=== PATIENT | female | born 1985 | race Caucasian/White ===

== ENCOUNTER 2016-09-05 10:09 | Emergency (ER) | payer OTHER ==
--- NOTE | 2016-09-05 10:52 | ED ---
General Adult HPI - General Chief complaint: Recheck/Abnormal Lab/Rx Stated complaint: abd pain 15 weeks preg Time Seen by Provider: 09/05/16 10:39 Source: patient, RN notes reviewed Mode of arrival: ambulatory Limitations: no limitations - History of Present Illness Initial comments: 31-year-old female presents emergency Department with chief complaint of wanting an ultrasound. Patient states that she has 14 weeks and a few days . Patient states that she has no abdominal complaints she denies pain, vaginal bleeding, vaginal discharge, dysuria, hematuria. She states she is scheduled see Dr. Edwards yesterday though she states that she was told that she cannot be seen because she has high risk because she had twins a urine a half ago. Patient states she is scheduled to see an J[facility]CRIPT DEVELOPER in [place] next month. Patient states that she just wants to have an ultrasound to check everything. Patient is A1 - Related Data Home Medications Medication Instructions Recorded Confirmed ALPRAZolam [Xanax] 0.5 mg PO Q8HR 02/04/16 02/04/16 Citalopram Hydrobromide [CeleXA] 40 mg PO DAILY 02/04/16 02/04/16 HYDROcodone/APAP 10-325MG [[place] 1 tab PO Q6H PRN 02/04/16 02/04/16 10-325] Previous Rx's Medication Instructions Recorded Acetaminophen-Codeine 300-30mg 1 tab PO Q4H PRN #10 tablet 02/04/16 [Tylenol #3] Npd-Gqbu-Kwyss Acid 1 each PO DAILY #30 cap 09/05/16 [-U Capsule] Allergies Allergy/AdvReac Type Severity Reaction Status Date / Time ibuprofen [From Motrin] Allergy Rash/Hives Verified 09/05/16 10:19 Review of Systems ROS Statement: Those systems with pertinent positive or pertinent negative responses have been documented in the HPI. ROS Other: All systems not noted in ROS Statement are negative. Past Medical History Past Medical History: No Reported History Additional Past Medical History / Comment(s): heart murmur History of Any Multi-Drug Resistant Organisms: None Reported Additional Past Surgical History / Comment(s): wisdom teeth Past Anesthesia/Blood Transfusion Reactions: No Reported Reaction Past Psychological History: No Psychological Hx Reported Smoking Status: Current every day smoker Past Alcohol Use History: None Reported Past Drug Use History: None Reported - Past Family History Mother Family Medical History: No Reported History General Exam Limitations: no limitations General appearance: alert, in no apparent distress Head exam: Present: atraumatic, normocephalic, normal inspection Respiratory exam: Present: normal lung sounds bilaterally. Absent: respiratory distress, wheezes, rales, rhonchi, stridor Cardiovascular Exam: Present: regular rate, normal rhythm, normal heart sounds. Absent: systolic murmur, diastolic murmur, rubs, gallop, clicks GI/Abdominal exam: Present: soft, normal bowel sounds. Absent: distended, tenderness, guarding, rebound, rigid Course Vital Signs 09/05/16 10:14 Temperature 97.6 F Pulse Rate 87 Respiratory 18 Rate Blood Pressure 116/70 O2 Sat by Pulse 98 Oximetry Medical Decision Making - Medical Decision Making 31-year-old female presented for with no complaints. Patient was requesting ultrasound. heart tones were performed by tn heart rate of 152. Patient's has no abdominal pain no vaginal bleeding or cramping. Patient has follow-up plan with [facility]. Patient was started on vitamin. Patient declined blood work. Disposition Clinical Impression: Disposition: HOME SELF-CARE Condition: Stable Instructions: (ED) Additional Instructions: Please return to the Emergency Department if symptoms worsen or any other concerns. Prescriptions: Vza-Qwiq-Vfkjp Acid [-U Capsule] 1 each PO DAILY #30 cap Time of Disposition: 11:43
[2016-09-05 11:50] VITALS: BP 127/70; PULSE 74; RESP 16; TEMP 97.8
== END 2016-09-05 11:49 | disposition home or self-care (01) ==
LOC: EC 10:09
DX: Z36 Encounter for antenatal screening of mother (principal); O99.332 Smoking (tobacco) complicating pregnancy, second trimester; F17.200 Nicotine dependence, unspecified, uncomplicated; Z3A.14 14 weeks gestation of pregnancy; Z88.8 Allergy status to other drugs, medicaments and biological substances; Z79.899 Other long term (current) drug therapy
CPT/HCPCS: 99283

== ENCOUNTER → 2016-12-11 | Outpatient (CLI) | payer OTHER ==
--- NOTE | 2016-12-12 07:48 | US ---
EXAMINATION TYPE: US OB anatomy transabd DATE OF EXAM: 12/11/2016 4:44 PM COMPARISON: NONE HISTORY: Z34.80 ENCOUNTER OF SUPERVISION OF NORMAL ; Anatomy survey per order; (twins); smoker TECHNIQUE: Transabdominal (TA) EXAM MEASUREMENTS: GESTATIONAL AGE / DATING Physician Established: (32 weeks/5 days) EDC: 01/31/2017 Dates by LMP: (32 weeks/5 days) EDC: 01/31/2017 Dates by First Scan: not here per patient Dates by Current Scan for: (32 weeks/2 days) EDC: 02/03/2017 SURVEY IUP: Single PLACENTA: Anterior ; aged appearance with hyperechoic internal multiple foci. PREVIA: No previa STEPHANIE: 13.6 cm Normal CERVICAL LENGTH (transabdominal: norm > 3.0cm): 3.3 cm BIOMETRY PRESENTATION: Vertex LIE: Longitudinal with spine maternal left BPD: 8.2 cm 33 weeks / 0 days HC: 29.8 cm 33 weeks / 0 days AC: 28.0 cm 32 weeks / 0 days FL: 6.3 cm 32 weeks / 4 days ESTIMATED WEIGHT IN GRAMS: 1953.0 grams ESTIMATED WEIGHT IN LBS/OZ: 4 lbs. 5 oz. WEIGHT PERCENTAGE BASED ON ESTABLISHED DATE: 28.8 % HC/AC: 1.07 Normal FL/AC: 22.47 Normal HEART RATE: 127 bpm RHYTHM: Normal ANATOMY SEEN (within normal limits): Choroid Plexus (bilateral) Four Chamber Heart Outflow tracts: LVOT/RVOT Stomach Situs Nose / Lips Diaphragm Kidneys (bilateral) Bladder Three Vessel Cord Longitudinal Spine Transverse Spine Legs (bilateral) ANATOMY SEEN (does not appear within normal limits): ANATOMY NOT SEEN: head structures due to head low in maternal pelvis, * Lateral Vent (< 1 cm) cm * Cisterna Magna (< 1.1 cm) cm * Nuchal Fold (< 0.6 cm) cm * Cerebellum (varies with age) cm Midline Falx Cavus Septi Pellucidi Arms (bilateral) due to crowding Cord Insert Single, live, IUP,32 weeks/2 days, EDC: 02/03/2017, HR 127bpm. IMPRESSION: CAMARENA FETUS PRESENT IN A VERTEX LIE WITH A GESTATIONAL AGE OF 32 WEEKS 2 DAYS +/- 3 WEEKS. ESTIMA PINO DATE OF CONFINEMENT BASED ON THIS EXAMINATION IS 02/03/2017. PLEASE NOTE THE LIMITATIONS AND THE MORPHOLOGIC EXAMINATION.
== END | disposition home or self-care (01) ==
LOC: RADUSWWP 15:53
PROVIDERS: ATTEND Obstetrics & Gynecology
DX: Z34.80 Encounter for supervision of other normal pregnancy, unspecified trimester (principal); Z3A.32 32 weeks gestation of pregnancy
CPT/HCPCS: 76811

== ENCOUNTER 2017-01-25 05:07 | Inpatient (IN) | payer OTHER ==
[2017-01-25] MEDS ORDERED: TERBUTALINE 1 MG/ML VIAL SQ PRN (05:26)
[2017-01-25] MEDS ORDERED: OXYTOCIN 10 UNIT/ML 1 ML VIAL IM PRN (05:26)
[2017-01-25] MEDS ORDERED: LIDOCAINE 1% (PF) 10 MG/ML (30 ML SDV) SQ PRN (05:26)
[2017-01-25] MEDS ORDERED: CARBOPROST TROMETHAMINE 250 MCG/ML 1 ML AMP IM PRN (05:26)
[2017-01-25] MEDS ORDERED: METHYLERGONOVINE 0.2 MG/ML 1 ML AMP IM PRN (05:26)
[2017-01-25 05:30] VITALS: RESP 16
[2017-01-25] MEDS ORDERED: OXYTOCIN 20 UNITS/1000 ML NS 1,000 ML IV SCH (05:30)
[2017-01-25] MEDS ORDERED: LACTATED RINGERS 1,000 ML IV SCH (05:30)
[2017-01-25] MEDS ORDERED: AMPICILLIN 2,000 MG in SODIUM CHLORIDE 0.9% 100 ML IVPB ONE (06:00)
[2017-01-25 06:07] LABS: Basophils % (A) 0 %; CH 31.5; CHCM 34.8; Eosinophils # (A) 0.1 k/uL (0-0.7); Eosinophils % (A) 1 %; HCT 38.1 % (34.0-46.0); HDW 2.53; HGB 12.9 gm/dL (11.4-16.0); Luc # (Auto) 0.21; Luc % (Auto) 2; Lymphocytes # (A) 2.1 k/uL (1.0-4.8); Lymphocytes % (A) 18 %; MCH 30.8 pg (25.0-35.0); MCHC 33.9 g/dL (31.0-37.0); MCV 90.8 fL (80.0-100.0); Mean Platelet Volume 7.8; Monocytes # (A) 0.4 k/uL (0-1.0); Monocytes % (A) 4 %; Neutrophils # (A) 8.5 k/uL (1.3-7.7); Neutrophils % (A) 75 %; RBC 4.19 m/uL (3.80-5.40); RDW 12.8 % (11.5-15.5); WBC 11.4 k/uL (3.8-10.6); WBC (Perox) 12.15
[2017-01-25 06:17] LABS: ALT 28 U/L (9-52); AST 22 U/L (14-36); Blood Urea Nitrogen 12 mg/dL (7-17); Glucose 90 mg/dL (74-99); LDH 465 U/L (313-618); Non-African American GFR(MDRD) >60 (>60 ml/min/1.73 sqM); Uric Acid 2.8 mg/dL (3.7-7.4)
[2017-01-25 06:18] LABS: Amorphous Sediment,Urine Rare /hpf; Appearance,Urine Clear (Clear); Bacteria,Urine Rare /hpf; Bilirubin,Urine Negative (Negative); Glucose,Urine (UA) Negative (Negative); Ketones,Urine Negative (Negative); Leukocyte Esterase,Urine Small (Negative); Mucus,Urine Rare /hpf; Nitrite,Urine Negative (Negative); PH, Urine 6.5 (5.0-8.0); Particle Count 3324; Protein,Urine Negative (Negative); RBC,Urine 3 /hpf (0-5); Specific Gravity,Urine 1.009 (1.001-1.035); Squamous Epithelial Cell,Urine 1 /hpf (0-4); UA Billing (MACRO vs. MICRO) MICRO; Urobilinogen,Urine <2.0 mg/dL (<2.0); WBC,Urine 9 /hpf (0-5)
[2017-01-25 06:27] VITALS: BMI 23.5
[2017-01-25 06:47] LABS: Hepatitis B Surface Ag Index 0.05
--- NOTE | 2017-01-25 07:09 | P.HPOB ---
History of Present Illness H&P Date: 01/25/17 Chief Complaint: Vaginal bleeding This is a 31-year-old female 5 para 2114 with an estimated date of confinement of 02/03/2017 based on a 32 week scan, estimated gestational age of 38-5/7 weeks, who presents to labor and delivery with complaints of vaginal bleeding when she wipes. She initially denied any contractions to the nurse but does tell me that she was having some mild irregular contractions before she arrived. She denies any spontaneous rupture of membranes. She is a very poor historian and has limited care during this . She states she was seeing a doctor at [facility] and couldn't give his name, but it appears to be Dr. Haywood. She does show a card that shows she did get her RhoGAM in December. Otherwise it appears she has not done a 1 hour Glucola test during this . She states her primary care physician a Dr. Becyk Elena gave her 150 of Selma 5/325 proximally 8 months ago or her teeth and she is still using the same prescription. Obstetrical history: . This is obtained looking at previous records since the patient could not give me accurate information. She had 2 vaginal deliveries she states at term. She had a twin delivery at 28 weeks vaginally approximately 1-1/2 years ago. She also had a miscarriage right before the twins. Review of Systems Constitutional: Denies chills, Denies fever Eyes: left discharge (Tearing from the left eye and swelling around the left eye ) Ears, nose, mouth and throat: Reports mouth pain Cardiovascular: Denies chest pain, Denies shortness of breath Respiratory: Denies cough Gastrointestinal: Reports abdominal pain (Mild contractions) Genitourinary: Reports Musculoskeletal: Denies myalgias Integumentary: Denies pruritus, Denies rash Neurological: Denies numbness, Denies weakness Past Medical History Past Medical History: No Reported History Additional Past Medical History / Comment(s): heart murmur History of Any Multi-Drug Resistant Organisms: None Reported Additional Past Surgical History / Comment(s): wisdom teeth Past Anesthesia/Blood Transfusion Reactions: No Reported Reaction Past Psychological History: No Psychological Hx Reported Smoking Status: Current every day smoker Past Alcohol Use History: None Reported Past Drug Use History: Opiates, Prescription Drug Abuse Additional Drug Use History / Comment(s): Patient states she was prescribed Selma's from her family physician 8 months ago. Specifically denies any methamphetamine use. - Past Family History Mother Family Medical History: No Reported History Medications and Allergies Home Medications Medication Instructions Recorded Confirmed Type HYDROcodone/APAP 10-325MG [[place] 1 tab PO Q6H PRN 02/04/16 01/25/17 History 10-325] Allergies Allergy/AdvReac Type Severity Reaction Status Date / Time ibuprofen [From Motrin] Allergy Rash/Hives Verified 01/25/17 05:10 Exam Osteopathic Statement: *. No significant issues noted on an osteopathic structural exam other than those noted in the History and Physical/Consult. - Vital Signs Vital signs: Vital Signs Temp Pulse Resp BP 01/25/17 05:24 97.5 F L 88 16 139/92 Intake and Output 01/24/17 01/24/17 01/25/17 14:59 22:59 06:59 Other: # Voids 1 Weight 62.142 kg Patient Weight 01/25/17 06:59 Weight 62.142 kg HEENT: Left eye appears swollen and is weepy. Teeth are rotting and painful according to the patient. Heart: Regular rate and rhythm Lungs: Clear to auscultation bilaterally Abdomen: Cervix: 6 cm/90%/-1 station. Artificial rupture membranes is carried out with what appears to be clear fluid. heart tones: Baseline appears to be approximately 140s with fair variability, accelerations, and some head compression early decelerations during contractions. Contractions: Approximately every 5-6 minutes Extremities: Negative Homans Results Result Diagrams: 01/25/17 05:50 01/25/17 05:50 Abnormal Lab Results - Last 24 Hours (Table) 01/25/17 01/25/17 01/25/17 Range/Units 05:42 05:42 05:50 WBC (3.8-10.6) k/uL Neutrophils # (1.3-7.7) k/uL Creatinine 0.48 L (0.52-1.04) mg/dL Uric Acid 2.8 L (3.7-7.4) mg/dL Urine Blood Moderate H (Negative) Ur Leukocyte Esterase Small H (Negative) Urine WBC 9 H (0-5) /hpf Amorphous Sediment Rare H (None) /hpf Urine Bacteria Rare H (None) /hpf Urine Mucus Rare H (None) /hpf Ur Amphetamines Screen Detected H (NotDetected) 01/25/17 Range/Units 05:50 WBC 11.4 H (3.8-10.6) k/uL Neutrophils # 8.5 H (1.3-7.7) k/uL Creatinine (0.52-1.04) mg/dL Uric Acid (3.7-7.4) mg/dL Urine Blood (Negative) Ur Leukocyte Esterase (Negative) Urine WBC (0-5) /hpf Amorphous Sediment (None) /hpf Urine Bacteria (None) /hpf Urine Mucus (None) /hpf Ur Amphetamines Screen (NotDetected) Assessment and Plan (1) 38 weeks gestation of Status: Acute (2) Limited care Status: Acute (3) Drug abuse during Status: Acute Plan: Admission for labor. Oxytocin augmentation of labor if needed. Will obtain all labs and drug screen. Patient is aware that the baby will need to go to special care nursery due to her narcotic use.
[2017-01-25 07:28] LABS: INR 0.9 (<1.1); Partial Thromboplastin Time 23.9 sec (22.0-30.0); Prothrombin Time 9.6 sec (9.0-12.0)
--- NOTE | 2017-01-25 08:05 | P.PROBDLV ---
Vaginal Delivery Note - . Vaginal Delivery Note: The patient progressed to complete dilation after a small amount of oxytocin augmentation of labor and artificial rupture membranes. Infant's head came to a crown and then delivered across an intact perineum. Nose and mouth were bulb suctioned at the perineum. With one further push, the delivered and was placed on mother's abdomen. Cord was clamped and cut and infant was taken to warmer for evaluation. A viable female was noted with scores of 9 at 1 minute and 9 at 5 minutes. weight is pending at this time. Placenta delivered shortly thereafter, intact, with a three-vessel cord. Uterus contracted well after oxytocin was given. Inspection of the perineum revealed no perineal lacerations. Estimated blood loss was approximately 100 mL 's. Mother is in stable condition. Infant will be taken to special care nursery for evaluation for withdrawal symptoms.
[2017-01-25] MEDS ORDERED: diphenhydrAMINE 50 MG/ML 1 ML VIAL IVP PRN ×2 (08:14)
[2017-01-25] MEDS ORDERED: HYDROCORTISONE 2.5% RECTAL CREAM 30 GM TUBE RECTAL PRN (08:14)
[2017-01-25] MEDS ORDERED: WITCH HAZEL 1 EACH MED..PAD TOPICAL PRN (08:14)
[2017-01-25] MEDS ORDERED: diphenhydrAMINE 50 MG CAP PO PRN (08:14)
[2017-01-25] MEDS ORDERED: diphenhydrAMINE 25 MG CAP PO PRN (08:14)
[2017-01-25] MEDS ORDERED: SENNOSIDES-DOCUSATE SODIUM 1 EACH TAB PO SCH (08:14)
[2017-01-25] MEDS ORDERED: ZOLPIDEM 5 MG TAB PO PRN (08:14)
[2017-01-25] MEDS ORDERED: BENZOCAINE SPRAY 57GM TOPICAL PRN (08:14)
[2017-01-25] MEDS ORDERED: SIMETHICONE 80 MG CHEWABLE PO PRN (08:14)
[2017-01-25] MEDS ORDERED: LANOLIN CREAM 5 GM TUBE TOPICAL PRN (08:14)
[2017-01-25] MEDS ORDERED: ACETAMINOPHEN TAB 325 MG TAB PO PRN (08:14)
[2017-01-25] MEDS: Acetaminophen-Codeine 300-30mg TAB PO PRN ×2 (08:51→15:04)
[2017-01-25] MEDS ORDERED: AMPICILLIN 1,000 MG in SODIUM CHLORIDE 0.9% 50 ML IVPB SCH (10:00)
[2017-01-25 14:02] VITALS: BP 139/90; PULSE 101; TEMP 98.1
--- NOTE | 2017-01-25 14:02 | P.DS ---
Providers Date of admission: 01/25/17 05:25 Expected date of discharge: 01/25/17 Attending physician: Shell Ramirez Primary care physician: Shell Ramirez - Discharge Diagnosis(es) (1) 38 weeks gestation of Current Visit: Yes Status: Acute (2) Limited care Current Visit: Yes Status: Acute (3) Drug abuse during Current Visit: Yes Status: Acute Hospital Course: This is a 31-year-old female 5 para 3 at 38-5/7 weeks who presented in active labor. She underwent oxytocin augmentation of labor and delivered vaginally a viable female with scores of 9 at 1 minute and 9 at 5 minutes and infant weight of 5 lbs. 9 oz. on 01/25/2017. The baby did go to special care nursery due to her history of hot acute's and positive drug screen for amphetamines. The patient at this time states she cannot stay at the hospital due to having to care for her other disabled twins. She is requesting discharge at this time. She is advised she can take [id number]-gmr-dkovttt Tylenol for pain. She is advised to follow up with Dr. Haywood who is her arcade game technician for care. She is advised to call her physician if she has any further questions or concerns after she goes home. Procedures: Spontaneous vaginal delivery of a viable female on 01/25/2017 Patient Condition at Discharge: Stable Plan - Discharge Summary New Discharge Prescriptions: New Acetaminophen Tab [Tylenol] 650 mg PO Q4HR PRN tab PRN Reason: Mild Pain Or Fever >= 100.5 Continue Aic-Lznm-Kopij Acid [-U Capsule (formulary)] 1 each PO DAILY #30 cap Discontinued HYDROcodone/APAP 10-325MG [[place] 10-325] 1 tab PO Q6H PRN PRN Reason: Pain Discharge Medication List Pdr-Twkl-Dcpnc Acid [-U Capsule (formulary)] 1 each PO DAILY # 30 cap 09/05/16 [Rx] Acetaminophen Tab [Tylenol] 650 mg PO Q4HR PRN tab 01/25/17 [Rx] Follow up Appointment(s)/Referral(s): Mac Haywood DO [REFERRING] - 6 Weeks Activity/Diet/Wound Care/Special Instructions: Instructions 1. Do not begin any exercise program for 3 weeks. 2. Do not resume sexual relations for 3 weeks or longer if uncomfortable. 3. You may take tub baths or showers at any time. 4. You may use tampons if desired after 3 weeks. 5. Keep the area of episiotomy (stitches) clean and dry. 6. If you are not nursing, wear a good fitting, supportive bra during the day and limit fluid intake for at least 1 week to prevent breast engorgement. 7. Call the office, [phone], within the next week to make appointment for your 6 week checkup if it has not already been made. 8. Report any of the following occurrences to the doctor promptly: a. Heavy, excessive bleeding b. Chills, fever c. Burning or frequency of urination d. Pain or redness and breasts if nursing e. Increasing pain or swelling in episiotomy (stitches). In addition to the above instructions, the following additional should be followed: 1. No heavy lifting or straining (exercising) until after 6 week checkup. 2. Keep abdominal incision clean and dry: You may wear a dressing if more comfortable. 3. Make office appointment for 10 days after going home or as instructed by her doctor. Discharge Disposition: HOME SELF-CARE
[2017-01-25] MEDS ORDERED: Rhogam IMMUNE GLOBULIN 1,500 UNIT/1 ML IM ONE (14:56)
--- NOTE | 2017-01-25 15:56 | P.MSEPDOC ---
Presenting Problems - Arrival Data Date of Arrival on Unit: 01/25/17 Time of Arrival on Unit: 05:25 Mode of Transport: Wheelchair - Complaint OB-Reason for Admission/Chief Complaint: Vaginal Bleeding Medical History - Information : 4 Para: 3 Term: 2 : 1 Abortions: Spontaneous or Elective: 0 Number of Living Children: 4 - Gestational Age Expected Date of Delivery: 02/04/17 Gestational Age by EMMA (wks/days): 38 Weeks and 4 Days - History Complications: Other Comment: takes norco for tooth pain Review of Systems - Review of Systems Constitutional: No problems Breast: No problems ENT: No problems Cardiovascular: No problems Respiratory: No problems Gastrointestinal: No problems Genitourinary: No problems Musculoskeletal: No problems Neurological: No problems Skin: No problems Vital Signs - Temperature Temperature: 98.1 F Temperature Source: Oral - Pulse Right Sitting Brachial Pulse Rate: 101 Pulse Assessment Method: Auscultation - Respirations Respiratory Rate: 16 Oxygen Delivery Method: Room Air - Blood Pressure Right Arm Sitting Blood Pressure: 139/90 Blood Pressure Mean: 106 Blood Pressure Source: Automatic Cuff Medical Screen Scoring (Pre) - Cervical Exam Dilation: 4-7 cm = 2 Effacement: More than 50% = 2 Membranes: Intact - Uterine Contractions Frequency: > or = 36 weeks =2 Duration: > 40 seconds = 2 - Maternal Vital Signs Maternal Blood Pressure: Systolic >139 = 2 Signs of Preeclampsia: N/A Maternal Respirations: N/A - Maternal Trauma Maternal Trauma: N/A - Assessment Baseline FHR: 180 Heart Rate - NICHD Category: Category II (Indeterminate) = 3 NST: Non-reactive = 3 - Total Score Total Score (Pre): 16 - Level of Risk Level of Risk: High (10+) Physician Notification (Pre) - Physician Notified Physician Notified Date: 01/25/17 Physician Notified Time: 05:25 Physician/Practitioner Notifed:: guillermina Spoke With: guillermina New Order Received: Yes - Notification Comment Comment: admit for labor; see orders. Medical Screen Scoring (Post) - Cervical Exam Dilation: 4-7 cm = 2 Effacement: More than 50% = 2 Membranes: Ruptured = 3 - Uterine Contractions Frequency: > or = 36 weeks =2 Duration: > 40 seconds = 2 Intensity: N/A - Maternal Vital Signs Maternal Temperature: N/A Maternal Blood Pressure: Diastolic > 89 = 1 Signs of Preeclampsia: N/A Maternal Respirations: N/A - Maternal Trauma Maternal Trauma: N/A - Assessment Heart Rate: 165 Heart Rate - NICHD Category: Category II (Indeterminate) = 3 - Total Score Total Score (Post): 15 - Post Treatment Level of Risk Post Treatment Level of Risk: High (10+) Physician Notification (Post) - Physician Notified Physician Notified Date: 01/25/17 Physician Notified Time: 05:25 Physician/Practitioner Notified:: Dr. Ramirez - Notification Comment Comment: Admit patient for labor, start antibiotics for unknown GBS per protocol , collect DOM lab work and urine drug screen, physician coming in. Disposition - Disposition OB Disposition: Admit, LDRP Suite I agree with the RN Medical Screening Exam: Yes Risk & Benefit of care provided described in d/c instruction: Yes Diagnosis: ENCOUNTER FOR FULL-TERM UNCOMPLICATED DELIVERY
[2017-01-26 09:43] LABS: HIV-1/HIV-2 Ab Screen NONREAC (NON REAC)
== END 2017-01-25 15:30 | disposition home or self-care (01) | DRG 775 ==
LOC: FBPOP 05:07 → 4FBP 05:25
PROVIDERS: ADMIT Obstetrics & Gynecology; ATTEND Obstetrics & Gynecology
PROC: 10E0XZZ Delivery of Products of Conception, External Approach (ICD-10-PCS; principal; 2017-01-25)
PROC: 3E0234Z Introduction of Serum, Toxoid and Vaccine into Muscle, Percutaneous Approach (ICD-10-PCS; 2017-01-25)
DX: O99.324 Drug use complicating childbirth (principal); F15.10 Other stimulant abuse, uncomplicated; Z67.41 Type O blood, Rh negative; O26.893 Other specified pregnancy related conditions, third trimester; F17.200 Nicotine dependence, unspecified, uncomplicated; Z37.0 Single live birth; O99.334 Smoking (tobacco) complicating childbirth; Z3A.38 38 weeks gestation of pregnancy; Z79.899 Other long term (current) drug therapy
CPT/HCPCS: 59025; 80306; 81001; 82565; 82947; 83615; 84112; 84450; 84460; 84520; 84550; 85025; 85384; 85610; 85730; 86762; 86780; 86850; 86870; 86880; 86900; 86901; 87340; 87389; 88307; 99213

== ENCOUNTER 2017-03-17 13:04 | Emergency (ER) | payer OTHER ==
[2017-03-17 13:14] VITALS: BP 141/95; PULSE 68; RESP 20; TEMP 98.1
--- NOTE | 2017-03-17 13:23 | ED ---
Upper Extremity HPI - General Chief Complaint: Extremity Injury, Upper Stated Complaint: Hand Injury Time Seen by Provider: 03/17/17 13:16 Source: patient Mode of arrival: ambulatory Limitations: no limitations - History of Present Illness Initial Comments: 31-year-old female patient presents to emergency department today for evaluation of left wrist injury. Patient states this morning around 0730 she was attempting to jump over a baby gait when her flip flop caught on the gate and she fell forward landing on her left outstretched hand. Patient states she has been having pain in the wrist since and is complaining of left thumb numbness. Patient states that she did take [place] prior to coming in. Patient denies hitting her head or losing consciousness. Denies any other injuries. She denies any head, neck, or back pain. She denies any chest pain, shortness of breath, abdominal pain, nausea, vomiting, dizziness, or weakness. Denies any previous injury to the wrist. Place: home - Related Data Previous Rx's Medication Instructions Recorded Hmv-Xxmd-Nyjqd Acid 1 each PO DAILY #30 cap 09/05/16 [-U Capsule (formulary)] Acetaminophen Tab [Tylenol] 650 mg PO Q4HR PRN tab 01/25/17 Acetaminophen-Codeine 300-30mg 1 tab PO Q6H PRN #15 tablet 03/17/17 [Tylenol #3] Allergies Allergy/AdvReac Type Severity Reaction Status Date / Time ibuprofen [From Motrin] Allergy Rash/Hives Verified 03/17/17 13:14 Review of Systems ROS Statement: Those systems with pertinent positive or pertinent negative responses have been documented in the HPI. ROS Other: All systems not noted in ROS Statement are negative. Past Medical History Past Medical History: No Reported History Additional Past Medical History / Comment(s): heart murmur History of Any Multi-Drug Resistant Organisms: None Reported Additional Past Surgical History / Comment(s): wisdom teeth Past Anesthesia/Blood Transfusion Reactions: No Reported Reaction Past Psychological History: No Psychological Hx Reported Smoking Status: Current every day smoker Past Alcohol Use History: None Reported Past Drug Use History: Opiates, Prescription Drug Abuse - Past Family History Mother Family Medical History: No Reported History General Exam Limitations: no limitations General appearance: alert, in no apparent distress Head exam: Present: atraumatic, normocephalic, normal inspection Eye exam: Present: normal appearance, PERRL, EOMI. Absent: scleral icterus, conjunctival injection, periorbital swelling ENT exam: Present: normal exam Neck exam: Present: normal inspection. Absent: tenderness, meningismus, lymphadenopathy Respiratory exam: Present: normal lung sounds bilaterally. Absent: respiratory distress, wheezes, rales, rhonchi, stridor Cardiovascular Exam: Present: regular rate, normal rhythm, normal heart sounds. Absent: systolic murmur, diastolic murmur, rubs, gallop, clicks GI/Abdominal exam: Present: soft, normal bowel sounds. Absent: distended, tenderness, guarding, rebound, rigid Extremities exam: Present: normal inspection, tenderness (Over the medial and lateral aspect of the joint. Tenderness over the snuffbox. Skin pink, warm, and dry. Patient is able to move fingers.), normal capillary refill. Absent: full ROM (Patient unable to move the wrist without significant pain.), pedal edema, joint swelling, calf tenderness Back exam: Present: normal inspection. Absent: tenderness, vertebral tenderness Neurological exam: Present: alert, oriented X3, CN II-XII intact Psychiatric exam: Present: normal affect, normal mood Skin exam: Present: warm, dry, intact, normal color. Absent: rash Course Vital Signs 03/17/17 13:12 Temperature 98.1 F Pulse Rate 68 Respiratory 20 Rate Blood Pressure 141/95 O2 Sat by Pulse 99 Oximetry Medical Decision Making - Medical Decision Making 31-year-old female patient presented to emergency department today for evaluation of left wrist injury. X-ray was obtained and showed no acute fracture or dislocation. Patient was tender over the snuffbox area so a thumb spica splint was placed. Patient struck a pop with orthopedics in 1-2 days for recheck. Patient given copy of the x-ray. Patient also given a prescription for Tylenol No. 3 for pain control. Instructed to ice and elevate the extremity. Instructed to return for any new, worsening, or concerning symptoms. - Radiology Data Radiology results: report reviewed, image reviewed X-ray of the wrist shows no acute fracture dislocation. The joint spaces in the left wrist appear within normal limits. The overlying soft tissue appears unremarkable. Impression by Dr. Cardoso shows no acute fracture dislocation. Disposition Clinical Impression: Wrist injury Disposition: HOME SELF-CARE Condition: Good Instructions: Wrist Injury (ED) Additional Instructions: Follow up with orthopedics for recheck in 1-2 days. Apply ice 20 minutes at a time at least 4 times daily. Keep splint in place until follow-up with Ortho. Return for any new, worsening, or concerning symptoms. Prescriptions: Acetaminophen-Codeine 300-30mg [Tylenol #3] 1 tab PO Q6H PRN #15 tablet PRN Reason: Pain Referrals: Iglesia Villagran MD [Primary Care Provider] - 1-2 days Irving Sinha DO [Doctor of Osteopathic Medicine] - 1-2 days Time of Disposition: 13:42
--- NOTE | 2017-03-17 13:35 | XR ---
EXAMINATION TYPE: XR wrist complete LT DATE OF EXAM: 03/17/2017 CLINICAL HISTORY: Left wrist pain after fall injury. TECHNIQUE: Frontal, lateral , scaphoid, and oblique images of the left wrist are obtained. COMPARISON: None FINDINGS: There is no acute fracture/dislocation evident in the left wrist. The joint spaces in the left wrist appear within normal limits. The overlying soft tissue appears unremarkable. IMPRESSION: There is no acute fracture or dislocation in the left wrist.
== END 2017-03-17 13:50 | disposition home or self-care (01) ==
LOC: EC 13:04
DX: S69.92XA Unspecified injury of left wrist, hand and finger(s), initial encounter (principal); F17.200 Nicotine dependence, unspecified, uncomplicated; Z88.6 Allergy status to analgesic agent; W01.0XXA Fall on same level from slipping, tripping and stumbling without subsequent striking against object, initial encounter; Y92.009 Unspecified place in unspecified non-institutional (private) residence as the place of occurrence of the external cause
CPT/HCPCS: 29125; 99283